=== PATIENT | male | born 1985 | race Caucasian/White ===

== ENCOUNTER 2016-11-01 01:25 | Observation (INO) | payer OTHER ==
[~2016-11-01] VITALS: Ht 175.3 cm; Wt 83.9 kg
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
--- NOTE | 2016-11-01 01:38 | NUR ---
PT NOTED WITH QUARTER SIZED RED AREA TO RT BICEP AREA, HARDENED IN CENTER, AWARE, ? APPPEARS TO BE AN INJECTION BETTIE. LABS DRAWN AND SENT. AVALOS, GOLD, LAV BLUE. PT AWARE OF NEED FOR TOX SCREEN
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
[2016-11-01 01:46] LABS: ABSOLUTE BASOPHIL COUNT 0.1 /CUMM (0.0-0.2); ABSOLUTE EOSINOPHIL COUNT 0.2 /CUMM (0.0-0.7); ABSOLUTE GRANULOCYTE CT 9.1 /CUMM (1.4-6.5); ABSOLUTE LYMPH COUNT 2.2 /CUMM (1.2-3.4); ABSOLUTE MONOCYTE COUNT 0.6 /CUMM (0.10-0.60); BASOPHIL % 0.4 % (0.0-2.0); EOSINOPHIL % 1.3 % (0-5); GRANULOCYTE % 75.3 % (42.2-75.2); HEMATOCRIT 50.5 % (42-52); MEAN CORPUSCULAR HGB 29.1 PG (27.0-31.0); MEAN CORPUSCULAR HGB CONC 33.2 G/DL (33.0-37.0); MEAN CORPUSCULAR VOLUME 87.7 FL (80.0-94.0); MEAN PLATELET VOLUME 8.3 FL (7.4-10.4); PLATELET COUNT 265 /CUMM (130-400); RBC DISTRIBUTION WIDTH 12.8 % (11.5-14.5); RED BLOOD CELL CT 5.76 /CUMM (4.70-6.10); WHITE BLOOD CELL COUNT 12.1 /CUMM (4.8-10.8)
--- NOTE | 2016-11-01 01:53 | NUR ---
PER DR. AC TO PLACE PT IN OBS, AWARE THAT LABS HAVE NOT RESULTED YET OR URINE COLLECTED.
--- NOTE | 2016-11-01 02:17 | RADIOLOGY REPORT ---
EXAMINATION: XR PORTABLE CHEST CLINICAL INFORMATION: Tachycardia. Hypoxia. COMPARISON: None TECHNIQUE: Portable frontal view of the chest was obtained. FINDINGS: Cardiac leads overlie the chest. The lungs are well expanded. There is no focal consolidation, edema, or effusion. No pneumothorax. The cardiomediastinal silhouette is within normal limits. No acute osseous abnormality. IMPRESSION: Clear lungs.
--- NOTE | 2016-11-01 02:20 | NUR ---
REMAINS SLEEPY BUT HR 100'S SATS 98-99% ON 2 LITERS.
--- NOTE | 2016-11-01 03:01 | NUR ---
PLACED IN EDOBSERVATION.
--- NOTE | 2016-11-01 06:31 | NUR ---
EASILY AROUSABLE MONITOR SINUS
--- NOTE | 2016-11-01 07:26 | NUR ---
ASSUMED CARE OF PT AT THIS TIME PT SITTING UP ON STRETCHER. RA SATS 95-98%. PT AWAKE, ALERT AND ORIENTED X3. BREAKFAST TRAY AND WATER PROVIDED. PT DENIES SI ATTEMPT WITH OVERDOSE LAST PM. AWARE WAITING TO SPEAK TO CRISIS THIS AM. OFFERS NO COMPLAINTS.
[2016-11-01 07:33] VITALS: BP 140/73
--- NOTE | 2016-11-01 07:58 | NUR ---
DR GARCIA TO BEDSIDE FOR EVAL AT THIS TIME.
--- NOTE | 2016-11-01 08:41 | NUR ---
PT CLEARED FOR D/C AT THIS TIME. PT REMAINS ALERT AND ORIENTED X3. PT CALLING FOR A RIDE HOME AT THIS TIME. PT AMBULTING WITH STEADY GAIT. PT PROVIDED WITH OUTPATIENT LIST OF DETOX FACILITIES AND VERBZLIED D/C INSTRUCTIONS.
== END 2016-11-01 23:00 ==
LOC: ERH 01:25 → ERHI 02:55 → CMPBEDREQ 11-02 16:10
PROVIDERS: ADMIT Pediatrics
DX: T40.2X1A Poisoning by other opioids, accidental (unintentional), initial encounter (principal)
CPT/HCPCS: 80307; 93005; 93010; 96374; G0378; G0480; J2310

== ENCOUNTER 2017-10-02 02:44 | Emergency (ER) | payer OTHER ==
[~2017-10-02] VITALS: Ht 175.3 cm; Wt 78.0 kg
[2017-10-02 02:57] VITALS: BP 142/77
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
== END 2017-10-02 03:38 ==
LOC: ERH 02:44
DX: S01.511A Laceration without foreign body of lip, initial encounter (principal); Y04.2XXA Assault by strike against or bumped into by another person, initial encounter; Y93.9 Activity, unspecified; Y92.9 Unspecified place or not applicable